=== PATIENT | female | born 1990 | race Caucasian/White ===

== ENCOUNTER → 2017-09-11 | Outpatient (CLI) | payer OTHER ==
[~2017-09-11] MED LIST: CHOL1000 PO; PRENTAB26 PO
== END | disposition home or self-care (01) ==
LOC: C.PAPS 14:31
PROVIDERS: ATTEND Physician Assistant
DX: Z01.419 Encounter for gynecological examination (general) (routine) without abnormal findings (principal)

== ENCOUNTER 2019-06-18 09:59 | Inpatient (IN) ==
[2019-06-18] MEDS ORDERED: OXYTOCIN 30 UNITS/500 ML BAG IV PRN ×3 (10:43→16:36)
--- NOTE | 2019-06-18 10:51 | History & Physical Report ---
Date of Service June 18, 2019 Assessment & Plan (1) Normal labor: IUP at 37+ weeks with SPROM now having spontaneous contractons will want epidural analgesia anticipate vaginal Present on Admission?: Yes History of Present Illness Chief Complaint: leaking amniotic fluid Primary Care Provider: VALDEZ Blandon Patient is a 28 yo white female EDC07/05/19 who presents at 37 + weeks with leaking clear fluid since 0730 this morning. She is starting to feel contractions getting stronger. GBS negative. Blood type O positive. Allergies Allergy/AdvReac Type Severity Reaction Status Date / Time Penicillins Allergy Mild hives, GI Verified 06/14/19 11:50 upset Dust Allergy Mild Sneezing Uncoded 01/10/19 09:35 Home Medications Home Medications Medication Instructions Recorded Confirmed Type prenat.vits,maria fernanda,[id number] 1 tab PO DAILY #30 tab 01/10/19 06/14/19 Rx cetirizine PO 03/09/19 06/14/19 History Patient History Medical History (Updated 06/18/19 @ 10:57 by Karin Hi MD, FACOG) History of chicken pox Surgical History (Updated 03/09/19 @ 10:34 by Rowena Haq) S/P dilation and curettage S/P wisdom tooth extraction Family History (Updated 03/09/19 @ 10:36 by Rowena Haq) Grandmother (Maternal) Breast cancer Other Nonketotic hyperglycinemia Social History (Updated 03/09/19 @ 10:38 by Rowena Haq) Preferred Language: Romanian Communication Ability: Effective Beliefs That Will Affect Care: None marital status: Current Living Situation: Family Current Living Situation Comment: spouse and daughter current occupation: homemaker Other Information That Helps Us Care for You: No Feels Safe at Home: Yes Safety Concerns: Feels Safe At This Time Smoking Status: Never smoker Do You Dip or Chew Tobacco: No ; Hx Alcohol Use: No Hx Substance Use: No Review of Systems All systems reviewed & are unremarkable except as noted in HPI & below Physical Exam Constitutional: WD/WN, vitals as above Respiratory: normal respiratory effort, lungs clear to auscultation Cardiovascular: RRR, no murmur, no edema Musculoskeletal: no cyanosis or clubbing, extremities motor strength 5/5 Psychiatric: A+Ox3, euthymic affect Genitourinary: OB Exam Abdomen: + vertex, + estimated weight (7-8 pounds) and + regular contractions (Q 3-4 minutes) Manual OB Exam: + cervical dilation 3 cm, + cervical effacement 60%, + station -2 and + amniotic fluid clear and nitrazine positive OB Exam Monitor Tracing: + external FHT monitor used, + external uterine monitor used, + category I and + normal FHT variability Results & Data Vital Signs (Past 12 Hours) Vital Signs Temp Pulse Resp BP 06/18/19 10:18 96 H 120/73 06/18/19 10:11 98.1 F 20 Code Status & VTE Plan VTE Prophylaxis Plan VTE Prophylaxis will be ordered: No
[2019-06-18 11:14] LABS: Hematocrit (blood only) 37.9 % (37-47); Hemoglobin 12.9 g/dL (12.0-16.0); Mean Corpuscular Hemoglobin 30.6 pg (25-34); Mean Corpuscular Volume 89.8 fL (80-100); Platelet Count 147 K/uL (130-400); RDW Coefficient of Variation 13.8 % (11.5-14.5); RDW Standard Deviation 44.7 fL (36.4-46.3); Red Blood Count 4.22 M/uL (4.2-5.4); White Blood Count 8.39 K/uL (4.8-10.8)
[2019-06-18] MEDS: LACTATED RINGER'S 1,000 ML IV PRN ×2 (12:06→13:31)
--- NOTE | 2019-06-18 12:13 | Anesthesiology Consultation ---
Date of Service June 18, 2019 Assessment & Plan Chart Review Chart Review: Acceptable Risk for Surgery, Patient NOT seen in Pre Admission Testing and Acceptable Risk for Labor Epidural Consults Requested none ASA ASA2 Proposed Anesthesia Anesthesia Type: General and Labor Epidural Risk / Benefits Reviewed With: PT / POA / Parent / Guardian, Accepts Plan and Informed Consent Obtained History Height/Weight Height: 5 ft 5 in Weight: 69.853 kg Allergies Allergy/AdvReac Type Severity Reaction Status Date / Time Penicillins Allergy Mild hives, GI Verified 06/14/19 11:50 upset Dust Allergy Mild Sneezing Uncoded 01/10/19 09:35 Medications Home Medications Medication Instructions Recorded Confirmed Last Taken prenat.vits,maria fernanda,[id number] 1 tab PO DAILY #30 tab 01/10/19 06/18/19 06/17/19 21:30 Active Medications Generic Name Dose Route Start Last Admin Trade Name Freq PRN Reason Stop Dose Admin Lactated Ringer's 1,000 mls @ 125 mls/hr 06/18/19 10:43 06/18/19 12:06 Lr IV 06/20/19 10:42 999 mls/hr .Q8H PRN Administration L&D Protocol Protocol NPO Date Last Intake of Fluids: 06/18/19 Time Last Intake of Fluids: 12:00 Date Last Intake of Solids: 06/17/19 Time Last Intake of Solids: 21:00 Past Medical History Medical History History of chicken pox Exercise / Class Metabolic Activity II 4-5 Yardwork/Stairs/Walk up hill Past Family History Family History Grandmother (Maternal) Breast cancer Other Nonketotic hyperglycinemia Past Surgical History Surgical History S/P dilation and curettage S/P wisdom tooth extraction Past Anesthesia History No Hx of Anesthesia Complications and No Family Hx of Anesthesia Complications History of PONV No Hx of PONV and No Hx of Motion Sickness Social History Smoking Status: Never smoker Do You Dip or Chew Tobacco: No Hx Alcohol Use: No Hx Substance Use: No substance use type: does not use Physical Exam Vital Signs Last Vital Signs Temp 36.7 C 06/18/19 10:11 Pulse 96 H 06/18/19 10:18 Resp 20 06/18/19 10:11 BP 120/73 06/18/19 10:18 Constitutional not obese ENMT Mouth: no dentition abnormality Thyromental Distance: > or= 3.5 Finger Breadths Mallampati Class: II Neck normal visual inspection and trachea midline; neck extension not limited Respiratory normal respiratory effort Auscultation: lungs clear to auscultation bilaterally Cardiovascular Rate/Rhythm: regular rate and regular rhythm Heart Sounds: no murmur Vessels: no carotid bruit Musculoskeletal Spine: lumbar spine normal to inspection; normal cervical ROM Neurologic moves all extremities Motor/Sensory: no sensory deficit Psychiatric Orientation: alert and oriented x 3 Testing Laboratory Results 06/18/19 10:51
[2019-06-18] MEDS ORDERED: fentaNYL citrate 100 MCG/2 ML VIAL ONE (13:08)
[2019-06-18] MEDS ORDERED: BUPIVACAINE 0.25% 30 ML VIAL ONE (13:09)
[2019-06-18] MEDS ORDERED: fentaNYL 2MCG/ML ROPIV 1.25MG/ML 100 ML BAG EPI ONE (13:09)
[2019-06-18] MEDS ORDERED: ePHEDrine sulfate 50 MG/ML AMP ONE (13:09)
[2019-06-18] MEDS ORDERED: PROMETHAZINE HCL 25 MG in SODIUM CHLORIDE 0.9% 50 ML IV PRN (13:45)
[2019-06-18] MEDS ORDERED: ONDANSETRON INJ 2 MG/ML 2 ML VIAL IV PRN (13:45)
[2019-06-18] MEDS ORDERED: DiphenhydrAMINE HCL 50 MG/ML VIAL IV PRN (13:45)
[2019-06-18] MEDS ORDERED: fentaNYL 2MCG/ML ROPIV 1.25MG/ML 100 ML BAG EPI PRN (13:45)
[2019-06-18] MEDS ORDERED: NALOXONE HCL 1 MG in SODIUM CHLORIDE 0.9% 1000ML 1,000 ML IV PRN (13:45)
[2019-06-18] MEDS ORDERED: ePHEDrine sulfate 50 MG/ML AMP IV PRN (13:45)
[2019-06-18] MEDS ORDERED: NALOXONE HCL 0.4 MG/1 ML VIAL/CARP IV PRN (13:45)
[2019-06-18] MEDS ORDERED: NALBUPHINE HCL INJ 10 MG/ML AMP IV PRN (13:45)
[2019-06-18] MEDS ORDERED: ACETAMINOPHEN 325 MG TAB PO PRN (16:36)
[2019-06-18] MEDS ORDERED: DIPHTHERIA/TETANUS/PERTUSSIS 0.5 ML SYR/VIAL IM ONE (16:36)
[2019-06-18] MEDS ORDERED: HYDROCORTISONE ACETATE 25 MG SUPP PR PRN (16:36)
[2019-06-18] MEDS ORDERED: SUPERCREAM 0.870% 15 GM JAR EXT PRN (16:36)
[2019-06-18] MEDS ORDERED: BENZOCAINE 20% AER SPR 82.5 GM CAN EXT PRN (16:36)
[2019-06-18] MEDS ORDERED: BISACODYL 10 MG SUPP PR PRN (16:36)
[2019-06-18] MEDS ORDERED: OXYCODONE/ACETAMINOPHEN 5mg/325mg TAB PO PRN (16:36)
--- NOTE | 2019-06-18 19:06 | Delivery Summary ---
DATE OF OPERATION: 06/18/2019 The patient is a 28-year-old 3, para 1-0-1-1, EDC of 07/05/2019 who presented with spontaneous rupture of membranes. She then progressed in spontaneous labor. She received effective epidural analgesia and progressed to full dilation. She pushed through 2 contractions for delivery of a viable male . There was a nuchal cord that was reduced prior to delivering the rest of the infant. The infant was then placed on the mother's abdomen for further attention and drying. The cord was clamped and cut prior to 30 seconds as there was poor respiratory effort initially. After placing the baby on the baby bed, there was spontaneous crying and the was moving all 4 limbs. A first-degree perineal laceration was repaired with 3-0 chromic in the usual fashion. Estimated blood loss was 200 mL. Mother and were doing well after delivery. I attest to the content of the Intraoperative Record and any orders documented therein. Any exception s are noted below.
--- NOTE | 2019-06-18 19:11 | Anesthesia Procedure Note ---
Date of Service June 18, 2019 Anesthesia Post Epidural Note Vital Signs Vital Signs: Temp Pulse Resp BP Pulse Ox 36.4 C L 97 H 16 104/56 L 99 06/18/19 14:55 06/18/19 18:55 06/18/19 19:04 06/18/19 18:55 06/18/19 16:30 Pain Intensity Bilateral Abdomen: Pain Intensity: 0 Notes Mental Status: alert / awake / arousable Nausea / Vomiting: adequately controlled Pain: adequately controlled Airway Patency, RR, SpO2: stable & adequate BP & HR: stable & adequate Hydration State: stable & adequate Neuraxial Anesthesia: was administered and sensory block is resolving Anesthetic Complications: no major complications apparent Epidural: Removed without complications and With tip intact
[2019-06-18] MEDS: IBUPROFEN 600 MG TAB PO PRN ×2 (19:26→23:37)
[2019-06-18] MEDS: DOCUSATE SODIUM 100 MG CAP PO SCH (20:34)
[2019-06-19] MEDS: IBUPROFEN 600 MG TAB PO PRN ×3 (06:23→14:39)
[2019-06-19 06:25] LABS: Hematocrit (blood only) 35.7 % (37-47); Hemoglobin 12.1 g/dL (12.0-16.0); Mean Corpuscular Hemoglobin 30.5 pg (25-34); Mean Corpuscular Hgb Conc 33.9 g/dL (32-36); Mean Corpuscular Volume 89.9 fL (80-100); Mean Platelet Volume 10.6 fL (7.4-10.4); Platelet Count 134 K/uL (130-400); RDW Coefficient of Variation 13.7 % (11.5-14.5); RDW Standard Deviation 45.1 fL (36.4-46.3); Red Blood Count 3.97 M/uL (4.2-5.4); White Blood Count 9.84 K/uL (4.8-10.8)
--- NOTE | 2019-06-19 08:21 | Obstetrical Progress Note ---
Date of Service June 19, 2019 Assessment & Plan (1) Encounter for care and examination after delivery: continue current care plan Subjective Ambulation: ambulating normally Voiding: no voiding problems Passing Gas:: Yes Diet Tolerance:: regular diet Lochia:: Moderate Feeding Type:: breast feeding some cramping with nursing Physical Exam Constitutional WD/WN, vitals as above Cardiovascular Extremities: no calf tenderness Psychiatric A+Ox3, euthymic affect Genitourinary OB Exam Abdomen: + fundal height Fundus: + firm and + relation to umbilicus (2 below); not tender Results & Data Vital Signs (Past 12 Hours) Vital Signs Temp Pulse Resp BP Pulse Ox 06/19/19 07:25 97.9 F 81 14 97/68 L 97 06/19/19 05:30 98.1 F 85 18 110/68 06/19/19 00:55 98.6 F 72 18 112/65
[2019-06-19] MEDS: PRENATAL VITAMIN 1 TAB PO SCH (08:25)
[2019-06-19] MEDS: DOCUSATE SODIUM 100 MG CAP PO SCH ×2 (08:25→20:16)
[2019-06-19] MEDS ORDERED: BISACODYL 5 MG TABEC PO SCH (20:00)
[2019-06-20] MEDS: IBUPROFEN 600 MG TAB PO PRN ×2 (02:13→08:19)
--- NOTE | 2019-06-20 05:46 | Obstetrical Progress Note ---
Date of Service June 20, 2019 Assessment & Plan (1) Encounter for care and examination after delivery: Laurie is a 28 yo on PPD 2 after an uncomplicated . - GBS -, Blood Type O+, Rubella immune -Vitals reviewed and WNL -patient is doing clinically well Discharge instruction reviewed. - After discharge will have [address] Perera. Supervising Physician Co-Signing Physician Notes Resident Physician Supervision Note: I interviewed and examined the patient. Discussed with Dr. Deutsch and agree with findings and plan as documented in the note. Any exceptions or clarifications are listed here: [None] Documented By: Karin Hi MD, FACOG Subjective Pain level is well controlled. Ambulation: ambulating normally Voiding: no voiding problems Passing Gas:: Yes Diet Tolerance:: regular diet Lochia:: Small; increased minimally with breast feeding last night Feeding Type:: breast feeding Review of Systems Constitutional: no fever, no chills and no sweats Eyes: no worsening vision Respiratory: no cough and no dyspnea Cardiovascular: no chest pain, no palpitations, no edema and no calf pain Gastrointestinal: no nausea and no vomiting Genitourinary: no dysuria and no urinary frequency Neurologic: no headache(s) Physical Exam Constitutional: WD/WN, vitals as above no acute distress Respiratory: normal respiratory effort, lungs clear to auscultation does not use accessory muscles Auscultation: no crackles, no rales, no rhonchi, no wheezes and no pleural rub Cardiovascular: Rate/Rhythm: regular rate and regular rhythm Heart Sounds: normal S1 and normal S2; no gallop, no murmur and no cardiac rub Extremities: no calf tenderness and no pedal edema Gastrointestinal (Abdomen): Inspection/Auscultation: normal bowel sounds; ab domen not distended Percussion/Palpation: abdomen soft Genitourinary: Uterus: fundus firm, palpable 2 cm below the umbilicus Results & Data Vital Signs (Past 12 Hours) Vital Signs Temp Pulse Resp BP 06/19/19 23:20 37.3 C 76 18 109/66 Laboratory Results 06/19/19 Range/Units 06:05 WBC 9.84 (4.8-10.8) K/uL RBC 3.97 L (4.2-5.4) M/uL Hgb 12.1 (12.0-16.0) g/dL Hct 35.7 L (37-47) % MCV 89.9 (80-100) fL MCH 30.5 (25-34) pg MCHC 33.9 (32-36) g/dL RDW Std Deviation 45.1 (36.4-46.3) fL RDW Coeff of Ghassan 13.7 (11.5-14.5) % Plt Count 134 (130-400) K/uL MPV 10.6 H (7.4-10.4) fL
[2019-06-20 06:39] LABS: Hematocrit (blood only) 35.9 % (37-47); Hemoglobin 12.1 g/dL (12.0-16.0)
[2019-06-20] MEDS: PRENATAL VITAMIN 1 TAB PO SCH (08:19)
[2019-06-20] MEDS: DOCUSATE SODIUM 100 MG CAP PO SCH (08:19)
== END 2019-06-20 09:05 | disposition home or self-care (01) | DRG 807 ==
LOC: OPB 09:59 → 4S1 09:59 → 4S2 20:04

== ENCOUNTER 2022-09-12 08:43 | Inpatient (IN) ==
--- NOTE | 2022-09-12 09:49 | History & Physical Report ---
Date of Service September 12, 2022 History of Present Illness Primary Care Provider: NO PCP Laurie is a 31 y/o female currently at 39 4/7 WGA with an JEROME 09/15/2022 as determined by LMP who is here for ruptured of membranes. She noticed agrawal of fluid around 0600 this morning and has had continuous leaking of clear fluid since. She has a past medical history of Crohn's Disease and Anxiety for which she has been taking 5mg of Lexapro throughout the . Irregular contractions; + movement; + fluid loss; - bloody show External FHT and external uterine monitors used; Category _ tracing; _ FHT variability. Had regular appointments with OB. Labs: (_/_/_) Blood type: _ Antibody screen: _ Hg: _ (today) Hct: _ (today) WBC: _ (today) Plt: _ (today) Rubella: _ VDRL/RPR: _ Gonorrhea: _ Chlamydia: _ HIV: _ HbSAg: _ GBS: _ Other screens: cff-DNA: _ (see scanned documents) CF: _ SMA: _ Allergies Allergy/AdvReac Type Severity Reaction Status Date / Time Penicillins Allergy Intermediate hives, GI Verified 09/12/22 09:10 upset Dust Allergy Mild Sneezing Uncoded 09/12/22 09:10 Home Medications Medication Instructions Recorded Confirmed Type vedolizumab 300 mg intravenous 300 mg IV Q8WK #1 ea 04/01/21 09/12/22 Rx solution (Entyvio) cholecalciferol (vitamin D3) 25 25 mcg PO HS 10/01/21 09/12/22 History mcg (1,000 unit) tablet (Vitamin D3) prenat.vits,maria fernanda,[id number] 1 tab PO DAILY 01/30/22 09/12/22 History escitalopram oxalate 5 mg tablet 2.5 mg PO HS 09/12/22 09/12/22 History (Lexapro) Patient History Medical History Anxiety Crohn's disease of both small and large intestine History of anesthesia reaction Nausea and vomiting after administration of anesthetic agent Surgical History History of colonoscopy History of hysteroscopy (~03/11/21) S/P dilation and curettage S/P wisdom tooth extraction Family History Grandmother (Maternal) Breast cancer Mother Family history of colonic polyps Grandmother (Paternal) Multiple myeloma Other No family history of adverse response to anesthesia Nonketotic hyperglycinemia Denies family history of Ovarian cancer Prostate cancer Myocardial infarction Colorectal cancer Social History Smoking Status: Never smoker Second Hand Exposure: No; Hx Alcohol Use: No Hx Substance Use: No Preferred Language: Sami Communication Ability: Effective Visual Impairment: No Limitations Hearing Ability: Normal Leaf Stamper Required: No Beliefs That Will Affect Care: None marital status: marital status details: Severo (33) [phone] Current Living Situation: Spouse Current Living Situation Comment: lives with /kids, 1 dog current occupational status: unemployed current occupation: homemaker Other Information That Helps Us Care for You: No Feels Safe at Home: Yes Safety Concerns: Feels Safe At This Time Childhood Exposure to Second-Hand Smoke: Yes Dental Care, Regularly: Yes Physical Activity Frequency: 3-4 Times per Week Seatbelt Use: always Sunscreen Use: Yes Assistive Devices: None Review of Systems Denies fever, chills, sweats Denies shortness of breath, difficulty breathing, chest pain, palpitations, chest pressure. Denies breast pain. Denies dysuria. Denies headache or changes in vision. Physical Exam Physical Exam: General: Alert, oriented. No acute distress. Cardiac: Regular rate and rhythm, no murmurs/rubs/gallops. Respiratory: Clear to auscultation bilaterally a/p, no wheezes/rales/rhonchi. No increased work of breathing. Symmetrical chest rise. No respiratory distress. Abdomen: Gravid; FH _cm; _ FHTs; Position: _ Pelvic: Dilation _cm; Effacement _; Station _ per Lower Extremities: No lower extremity edema or swelling. No deep calf pain. Dutch's negative bilaterally Results & Data ([facility]) Vital Signs (Past 12 Hours) Vital Signs Temp Pulse Resp BP 09/12/22 08:57 36.7 C 88 20 107/71
[2022-09-12] MEDS ORDERED: LIDOCAINE 1% LOCAL 20 ML VIAL INFIL PRN (09:55)
[2022-09-12] MEDS ORDERED: OXYTOCIN 30 UNITS/500 ML BAG IV PRN ×2 (09:55→17:14)
--- NOTE | 2022-09-12 10:01 | History & Physical Report ---
Date of Service September 12, 2022 Assessment & Plan (1) Supervision of normal IUP (intrauterine ) in multigravida: Plan: Laurie is a 31yo at 39w4d GA. SROM 1. Fetus: Cat 1 2. Labor: SROM. Awaiting onset of labor. Will augment PRN 3. GBS negative 4. Vitals: WNL (2) SROM (spontaneous rupture of membranes): History of Present Illness Primary Care Provider: NO PCP Laurie is a 31yo at 39w4d GA. Presents with LOF since 6am. Reports occasional mild contractions. Denies VB. Good FM. Hx of Crohns. OB Labs: Blood Type O Positive 04/03/22 Antibody Screen NEGATIVE 04/03/22 Hemoglobin 12.4 g/dl (12.0-16.0) 06/23/22 Hematocrit 36.9 % (34.1-44.9) 06/23/22 Mean Corpuscular Volume 88.5 fL (80.0-100.0) 04/03/22 Platelet Count 182 K/uL (130-400) 04/03/22 Rubella IgG Antibody Immune (Immune) 04/03/22 Rapid Plasma Reagin Nonreactive (Nonreactive) 04/03/22 Hepatitis B Surface Antigen Neg (Neg) 01/15/21 Hepatitis B Surface Antigen. NON-REACTIVE (NON-REACTIVE) 04/03/22 Hepatitis C Antibody (EIA) NON-REACTIVE (NON-REACTIVE) 04/03/22 HIV (1&2) Ab and P24 Ag, 4th Gener Neg (Neg) 11/25/18 HIV (1&2) Ag and Ab Confirmation NON-REACTIVE (NON-REACTIVE) 04/03/22 Glucose 1 Hour 50 gm Load 116 mg/dl (70-130) 06/23/22 OB Optional Labs: Chlamydia trachomatis RNA NOT DETECTED (NOT DETECTED) 02/13/22 Neisseria gonorrhoeae RNA NOT DETECTED (NOT DETECTED) 02/13/22 Thyroid Stimulating Hormone (TSH) 0.763 uIu/ml (0.300-4.500) 07/26/21 Labs Reviewed: No labs to pull forward from prior - HK Declines quad/msafp--mln declined cf/sma--akh Allergies Allergy/AdvReac Type Severity Reaction Status Date / Time Penicillins Allergy Intermediate hives, GI Verified 09/12/22 09:10 upset house dust Allergy Mild Sneezing Verified 09/12/22 10:00 Home Medications Medication Instructions Recorded Confirmed Type vedolizumab 300 mg intravenous 300 mg IV Q8WK #1 ea 04/01/21 09/12/22 Rx solution (Entyvio) cholecalciferol (vitamin D3) 25 25 mcg PO HS 10/01/21 09/12/22 History mcg (1,000 unit) tablet (Vitamin D3) prenat.vits,maria fernanda,[id number] 1 tab PO DAILY 01/30/22 09/12/22 History escitalopram oxalate 5 mg tablet 2.5 mg PO HS 09/12/22 09/12/22 History (Lexapro) Patient History Medical History (Updated 09/12/22 @ 10:05 by Pancho Tam MD) Anxiety Crohn's disease of both small and large intestine History of anesthesia reaction WITH CHILDBIRTH EPIDURAL (1.5 YR AGO [facility]) PT HAD SEVERE ITCHING AND DECREASE IN BP, NEEDED 2 SHOTS TO BRING BP BACK UP Nausea and vomiting after administration of anesthetic agent SROM (spontaneous rupture of membranes) Surgical History History of colonoscopy last 12/25/20 @ [place] History of hysteroscopy (~03/11/21) with endometrial polyp removal S/P dilation and curettage HX S/P wisdom tooth extraction HX Family History Grandmother (Maternal) Breast cancer Mother Family history of colonic polyps Grandmother (Paternal) Multiple myeloma Other No family history of adverse response to anesthesia Nonketotic hyperglycinemia Denies family history of Ovarian cancer Prostate cancer Myocardial infarction Colorectal cancer Social History Smoking Status: Never smoker Second Hand Exposure: No; Hx Alcohol Use: No Hx Substance Use: No Preferred Language: Venezuelan Communication Ability: Effective Visual Impairment: No Limitations Hearing Ability: Normal Salvage Laborer Required: No Beliefs That Will Affect Care: None marital status: marital status details: Severo (33) [phone] Current Living Situation: Spouse Current Living Situation Comment: lives with /kids, 1 dog current occupational status: unemployed current occupation: homemaker Other Information That Helps Us Care for You: No Feels Safe at Home: Yes Safety Concerns: Feels Safe At This Time Childhood Exposure to Second-Hand Smoke: Yes Dental Care, Regularly: Yes Physical Activity Frequency: 3-4 Times per Week Seatbelt Use: always Sunscreen Use: Yes Assistive Devices: None Physical Exam Genitourinary: normal external appearance OB Exam Abdomen: + vertex Manu al OB Exam: + cervical dilation 2 cm, + cervical effacement 50%, + station high and + amniotic fluid (Gross rupture) clear OB Exam Monitor Tracing: + external FHT monitor used, + external uterine monitor used, + category I and + normal FHT variability; no early decelerations present, no late decelerations present and no variable decelerations Results & Data ([facility]) Vital Signs (Past 12 Hours) Vital Signs Temp Pulse Resp BP 09/12/22 08:57 36.7 C 88 20 107/71 Coding Level of Care Code None Diagnoses Supervision of normal IUP (intrauterine ) in multigravida Z34.80 SROM (spontaneous rupture of membranes)
[2022-09-12 10:28] LABS: Hemoglobin 13.7 g/dl (12.0-16.0); Mean Corpuscular Hemoglobin 30.5 pg (25.0-34.0); Mean Corpuscular Hgb Conc 34.3 g/dL (32.0-36.0); Mean Corpuscular Volume 89.1 fL (80.0-100.0); Mean Platelet Volume 11.2 fL (9.4-12.4); Platelet Count 170 K/uL (130-400); RDW Coefficient of Variation 13.5 % (11.5-14.5); Red Blood Count 4.49 M/uL (4.20-5.40); White Blood Count 8.96 K/ul (4.8-10.8)
--- NOTE | 2022-09-12 12:31 | Labor Progress Brief Note ---
Date of Service September 12, 2022 Subjective Ctx spaced but more intense Assessment & Plan (1) SROM (spontaneous rupture of membranes): Plan: 31 yo at 39 4/7 wga admitted with SROM VSS Fetus cat 1 Labor - progress noted, now s/p forebag arom so will see if that helps GBS neg epidural prn Physical Exam Genitourinary: Manual OB Exam: + cervical dilation (3-4), + cervical effacement 50%, + station -2 and + amniotic fluid (arom forebag) OB Exam Monitor Tracing: + external FHT monitor used, + external uterine monitor used (7-8) and + category I (130/mod/+accel/-decel) Results & Data ([facility]) Vital Signs (Past 12 Hours) Vital Signs Temp Pulse Resp BP 09/12/22 12:01 20 09/12/22 12:01 98.1 F 20 09/12/22 12:01 85 09/12/22 12:01 102/66 09/12/22 08:57 98.1 F 88 20 107/71 Coding Level of Care Code None Diagnoses SROM (spontaneous rupture of membranes)
[2022-09-12] MEDS: LACTATED RINGER'S 1,000 ML IV PRN ×2 (13:53→14:51)
[2022-09-12] MEDS ORDERED: fentaNYL citrate 100 MCG/2 ML VIAL ONE (14:00)
[2022-09-12] MEDS ORDERED: LIDOCAINE 2%/EPINEPHRINE 1:200,000 20 ML SDV ONE (14:00)
[2022-09-12] MEDS ORDERED: BUPIVACAINE 0.25% 30 ML VIAL ONE (14:00)
[2022-09-12] MEDS ORDERED: SODIUM CHLORIDE 0.9% INJ 10 ML VIAL ONE (14:00)
[2022-09-12] MEDS ORDERED: ePHEDrine sulfate 50 MG/ML AMP ONE (14:00)
[2022-09-12] MEDS ORDERED: fentaNYL 2MCG/ML ROPIVACAINE 1.25MG/ML 100 ML BAG EPI ONE (14:01)
--- NOTE | 2022-09-12 14:45 | Anesthesiology Consultation ---
Date of Service September 12, 2022 Assessment & Plan Chart Review Chart Review: Acceptable Risk for Labor Epidural Consults Requested none History Height/Weight Height: 5 ft 5 in Weight: 75.75 kg Allergies Allergy/AdvReac Type Severity Reaction Status Date / Time Penicillins Allergy Intermediate hives, GI Verified 09/12/22 09:10 upset house dust Allergy Mild Sneezing Verified 09/12/22 10:00 Medications Home Medications Medication Instructions Recorded Confirmed Last Taken vedolizumab 300 mg intravenous 300 mg IV Q8WK #1 ea 04/01/21 09/12/22 07/11/22 09:00 solution (Entyvio) cholecalciferol (vitamin D3) 25 25 mcg PO HS 10/01/21 09/12/22 09/11/22 21:00 mcg (1,000 unit) tablet (Vitamin D3) prenat.vits,maria fernanda,[id number] 1 tab PO DAILY 01/30/22 09/12/22 09/11/22 21:00 escitalopram oxalate 5 mg tablet 2.5 mg PO HS 09/12/22 09/12/22 09/11/22 21:00 (Lexapro) Active Medications Generic Name Dose Route Start Last Admin Trade Name Freq PRN Reason Stop Dose Admin Lactated Ringer's 1,000 mls @ 125 mls/hr 09/12/22 09:55 09/12/22 13:53 Lr IV 09/14/22 09:54 999 mls/hr .Q8H PRN Administration L&D Protocol Protocol Past Medical History Medical History (Updated 09/12/22 @ 10:05 by Pancho Tam MD) Anxiety Crohn's disease of both small and large intestine History of anesthesia reaction WITH CHILDBIRTH EPIDURAL (1.5 YR AGO [facility]) PT HAD SEVERE ITCHING AND DECREASE IN BP, NEEDED 2 SHOTS TO BRING BP BACK UP Nausea and vomiting after administration of anesthetic agent SROM (spontaneous rupture of membranes) Past Family History Family History Grandmother (Maternal) Breast cancer Mother Family history of colonic polyps Grandmother (Paternal) Multiple myeloma Other No family history of adverse response to anesthesia Nonketotic hyperglycinemia Denies family history of Ovarian cancer Prostate cancer Myocardial infarction Colorectal cancer Past Surgical History Surgical History History of colonoscopy last 12/25/20 @ [place] History of hysteroscopy (~03/11/21) with endometrial polyp removal S/P dilation and curettage HX S/P wisdom tooth extraction HX Social History Smoking Status: Never smoker Hx Alcohol Use: No alcohol intake frequency: holidays/special occasions only Hx Substance Use: No substance use type: does not use Physical Exam Vital Signs Last Vital Signs Temp 36.8 C 09/12/22 13:58 Pulse 92 H 09/12/22 14:44 Resp 20 09/12/22 14:30 BP 108/70 09/12/22 14:43 Pulse Ox 97 09/12/22 14:44 Testing Laboratory Results 09/12/22 10:08 Blood Type O Positive 09/12/22 10:08 Antibody Screen NEGATIVE 09/12/22 10:08
[2022-09-12] MEDS ORDERED: ePHEDrine sulfate 50 MG/ML AMP IV PRN (14:47)
[2022-09-12] MEDS ORDERED: ONDANSETRON INJ 2 MG/ML 2 ML VIAL IV PRN (14:47)
[2022-09-12] MEDS ORDERED: diphenhydrAMINE 50 MG/ML VIAL IV PRN (14:47)
[2022-09-12] MEDS ORDERED: NALOXONE HCL 0.4 MG/1 ML VIAL/CARP IV PRN (14:47)
[2022-09-12] MEDS ORDERED: NALBUPHINE HCL INJ 10 MG/ML AMP IV PRN (14:47)
[2022-09-12] MEDS ORDERED: NALOXONE HCL 1 MG in SODIUM CHLORIDE 0.9% 1000ML 1,000 ML IV PRN (14:47)
[2022-09-12] MEDS ORDERED: fentaNYL 2MCG/ML ROPIVACAINE 1.25MG/ML 100 ML BAG EPI PRN (14:47)
--- NOTE | 2022-09-12 16:53 | Delivery Summary ---
Vaginal Delivery Summary Date of Service September 12, 2022 Vaginal Delivery Summary and 2nd Degree LAC PREOPERATIVE DIAGNOSIS: 1. Single intrauterine at 39 4/7 wga 2. SROM 3. Labor 4. Crohn's disease POSTOPERATIVE DIAGNOSIS: 1. Single intrauterine at 39 4/7 wga 2. SROM 3. Labor 4. Crohn's disease 5. Delivered PROCEDURE: 1. Normal spontaneous vaginal delivery. SURGEON: Tesha Cm MD ANESTHESIA: Epidural. ESTIMATED BLOOD LOSS: 300 mL FLUIDS: Continuous LR. URINE OUTPUT: None. COMPLICATIONS: None. CONDITION: Stable. INDICATIONS: 31 yo at 39 4/7 wga presented with SROM. She was found to be 2cm on admission. A forebag was artificially ruptured and she received an epidural for pain control. She then progressed to complete and desired to push. FINDINGS: A viable male , weight pending with Apgars of 8 and 9 at 1 and 5 minutes respectively. SPECIMEN: Cord blood OPERATIVE REPORT: The patient progressed to 10 cm, 100% effaced and +2 station, pushed over intact perineum with anesthesia to deliver a viable male , weight and Apgars as above. Head of delivered in MIKE position. No nuchal cord was present. Body and shoulders were delivered without difficulty. was delivered to maternal abdomen and nursing staff. Delayed cord clamping was performed for 60 seconds. Cord was clamped and cut. Cord blood was obtained. Placenta delivered spontaneously intact with 3-vessel cord. IV oxytocin and fundal massage were given for excellent hemostasis. Vagina, cervix, perineum, and placenta were inspected. A second degree laceration was noted and repaired using 3-0 vicryl. There was excellent hemostasis. Sponge and needle counts correct x2. No sponges were left behind. Mother and stable in immediate period. [facility] [place] Vaginal Delivery Charge Vaginal Delivery Codes: 19272 global code for the antepartum, delivery, and post- Delivery Type Details: and 2nd Degree LAC
[2022-09-12] MEDS ORDERED: bisacodyL 10 MG SUPP PR PRN (17:14)
[2022-09-12] MEDS ORDERED: BENZOCAINE 20% AER SPR 82.5 GM CAN EXT PRN (17:14)
[2022-09-12] MEDS ORDERED: DIPHTHERIA/TETANUS/PERTUSSIS 0.5mL SYR/VIAL (Age 7+yrs) IM ONE (17:14)
[2022-09-12] MEDS ORDERED: IBUPROFEN 600 MG TAB PO PRN (17:14)
[2022-09-12] MEDS ORDERED: HYDROCORTISONE ACETATE 25 MG SUPP PR PRN (17:14)
--- NOTE | 2022-09-12 19:01 | Anesthesia Procedure Note ---
Date of Service September 12, 2022 Anesthesia Post Epidural Note Vital Signs Vital Signs: Temp Pulse Resp BP Pulse Ox 36.6 C 98 H 16 105/55 L 92 09/12/22 18:47 09/12/22 18:47 09/12/22 18:47 09/12/22 18:47 09/12/22 16:26 Pain Intensity Bilateral Abdomen: Pain Intensity: 3 Notes Mental Status: alert / awake / arousable Nausea / Vomiting: adequately controlled Pain: adequately controlled Airway Patency, RR, SpO2: stable & adequate BP & HR: stable & adequate Hydration State: stable & adequate Neuraxial Anesthesia: was administered and sensory block is resolving Anesthetic Complications: no major complications apparent and Pt Satisfied with anesthetic care Epidural: Removed without complications and With tip intact
[2022-09-12] MEDS: DOCUSATE SODIUM 100 MG CAP PO SCH ×2 (20:29→21:28)
[2022-09-12] MEDS: ESCITALOPRAM OXALATE ORAL SOLN 5 MG/5 ML PO SCH ×2 (21:28→21:29)
[2022-09-12] MEDS: ACETAMINOPHEN 325 MG TAB PO PRN (22:12)
--- NOTE | 2022-09-13 05:44 | Obstetrical Progress Note ---
Date of Service <Edda Correa - Last Filed: 09/13/22 06:50> September 13, 2022 Assessment & Plan <Edda Correa - Last Filed: 09/13/22 06:50> (1) Status post vaginal delivery: continue OOB, ambulation, diet as tolerated (2) Anxiety disorder: - continue home Lexapro <Tesha Cm MD - Last Filed: 09/13/22 06:54> (1) Status post vaginal delivery: (2) Anxiety disorder: Subjective <Edda Correa - Last Filed: 09/13/22 06:50> Laurie is a 31 y/o female who is now PPD # 1 following vaginal delivery at 39 4/7 weeks. Reports feeling well overall this morning. Mild abdominal cramping, pain well managed on analgesics. Voiding. Tolerating meals overnight and able to ambulate some. Is passing gas and no bowel movements. Some persistent lochia with some improvement this morning. Breast feeding. Review of Systems Denies fever, chills, sweats Denies shortness of breath, difficulty breathing, chest pain, palpitations, chest pressure. Denies breast pain. Denies dysuria. Denies headache or changes in vision. Physical Exam <Edda Correa - Last Filed: 09/13/22 06:50> General: Alert, oriented. No acute distress. Cardiac: Regular rate and rhythm, no murmurs/rubs/gallops. Respiratory: Clear to auscultation bilaterally a/p, no wheezes/rales/rhonchi. No increased work of breathing. Symmetrical chest rise. No respiratory distress. Abdomen: Soft, nontender, nondistended. Uterus: Uterine fundus firm, palpable 2 cm below umbilicus. Lower Extremities: No lower extremity edema or swelling. No deep calf pain. Results & Data ([facility]) <Edda Correa - Last Filed: 09/13/22 06:50> Vital Signs (Past 12 Hours) Vital Signs Temp Pulse Pulse Resp BP BP Pulse Ox 09/13/22 03:23 36.7 C 81 18 104/70 97 09/12/22 23:12 37.1 C 75 18 109/72 98 09/12/22 20:00 36.8 C 100 H 18 99/66 L 97 09/12/22 18:17 18 09/12/22 18:47 36.6 C 16 09/12/22 17:47 16 09/12/22 19:47 104 H 09/12/22 19:47 104/56 L 09/12/22 19:32 131 H 09/12/22 19:32 109/56 L 09/12/22 19:17 106 H 09/12/22 19:17 106/60 09/12/22 19:02 111 H 09/12/22 19:02 98/59 L 09/12/22 18:47 98 H 09/12/22 18:47 105/55 L 09/12/22 18:32 107 H 09/12/22 18:32 113/61 09/12/22 18:17 82 09/12/22 18:17 104/62 09/12/22 18:02 86 09/12/22 18:02 106/58 L 09/12/22 17:47 93 H 09/12/22 17:47 106/58 L O2 Del Method 09/13/22 03:23 Room Air 09/12/22 23:12 Room Air 09/12/22 20:00 Room Air 09/12/22 18:17 09/12/22 18:47 09/12/22 17:47 09/12/22 19:47 09/12/22 19:47 09/12/22 19:32 09/12/22 19:32 09/12/22 19:17 09/12/22 19:17 09/12/22 19:02 09/12/22 19:02 09/12/22 18:47 09/12/22 18:47 09/12/22 18:32 09/12/22 18:32 09/12/22 18:17 09/12/22 18:17 09/12/22 18:02 09/12/22 18:02 09/12/22 17:47 09/12/22 17:47 <Tesha Cm MD - Last Filed: 09/13/22 06:54> Co-Signing Physician Notes Resident Physician Supervision Note: I interviewed and examined the patient. Discussed with Dr. Correa and agree with findings and plan as documented in the note. Any exceptions or clarifications are listed here: PP1 s/p , doing well. VSS, exam benign and wnl. Continue routine pp care Documented By: Tesha Cm MD Resident Activity Tracking <Edda Correa, DO - Last Filed: 09/13/22 06:50> Resident Involvement: Resident Care Provided Care Provided: OB Delivery (post )
[2022-09-13] MEDS: ACETAMINOPHEN 325 MG TAB PO PRN ×2 (06:42→15:55)
[2022-09-13] MEDS: DOCUSATE SODIUM 100 MG CAP PO SCH ×2 (08:33→21:07)
[2022-09-13] MEDS: PRENATAL VITAMIN 1 TAB PO SCH (08:34)
[2022-09-13] MEDS ORDERED: bisacodyL 5 MG TABEC PO SCH (20:00)
[2022-09-13] MEDS: ESCITALOPRAM OXALATE ORAL SOLN 5 MG/5 ML PO SCH (21:07)
[2022-09-14] MEDS: ACETAMINOPHEN 325 MG TAB PO PRN ×2 (01:35→08:52)
[2022-09-14] MEDS: DOCUSATE SODIUM 100 MG CAP PO SCH (08:52)
--- NOTE | 2022-09-14 08:52 | Obstetrical Progress Note ---
Date of Service September 14, 2022 Assessment & Plan (1) Status post vaginal delivery: Day 2 s/p . Doing well. Stable for discharge (2) Anxiety disorder: - continue home Lexapro Subjective Ambulation: ambulating normally Voiding: no voiding problems Passing Gas:: Yes Diet Tolerance:: regular diet Lochia:: Moderate Feeding Type:: breast feeding Physical Exam Constitutional WD/WN, vitals as above Respiratory normal respiratory effort; no respiratory distress and no labored breathing Gastrointestinal (Abdomen) Inspection/Auscultation: abdomen normal to inspection; abdomen not distended Percussion/Palpation: abdomen soft; abdomen nontender, no guarding and abdomen not rigid Genitourinary OB Exam Abdomen: + fundal height Fundus: + firm and + relation to umbilicus (Below); not tender or not boggy Results & Data ([facility]) Vital Signs (Past 12 Hours) Vital Signs Temp Pulse Resp BP Pulse Ox O2 Del Method 09/13/22 23:17 36.6 C 71 18 112/76 97 Room Air
[2022-09-14] MEDS: PRENATAL VITAMIN 1 TAB PO SCH (14:29)
== END 2022-09-14 14:41 | disposition home or self-care (01) | DRG 806 ==
LOC: OPB 08:43 → 4S1 08:47 → 4E2 20:17